=== PATIENT | female | born 1985 | race Caucasian/White ===

== ENCOUNTER 2019-11-26 10:17 | Emergency (ER) | payer BC ==
[~2019-11-26] VITALS: Ht 172.7 cm; Wt 90.5 kg
[2019-11-26 10:34] VITALS: TEMP 98.3
[2019-11-26 10:49] LABS: COLLECTION METHOD CLEAN CATCH
[2019-11-26 11:06] LABS: MUCOUS Present /lpf; PH 8 (5-8); URINE APPEARANCE Cloudy; URINE BACTERIA Rare /hpf; URINE BILIRUBIN Negative (NEGATIVE); URINE BLOOD Negative (NEGATIVE); URINE COLOR Yellow; URINE GLUCOSE Negative (NEGATIVE); URINE KETONE Trace (NEGATIVE); URINE LEUKOCYTE ESTERASE Negative (NEGATIVE); URINE NITRATE Negative (NEGATIVE); URINE PROTEIN(semi-quant) Negative (NEGATIVE); URINE RBC 0-2 /hpf; URINE UROBILINOGEN Negative (NEGATIVE)
[2019-11-26 11:13] LABS: BASO % 0.2 % (0.0-2.0); EOS # 0.1 (0.0-0.7); EOS % 1.7 % (0-4.0); GRAN # 5.7 (1.4-6.5); GRAN % 70.2 % (42.2-75.2); HEMOGLOBIN 11.5 g/dl (12.5-16.0); LYMPH # 1.6 (1.2-3.4); LYMPH % 19.9 % (20.0-51.0); MEAN CELL VOLUME 95 fl (80.0-100.0); MEAN CORPUSCULAR HEMOGLOBIN 33 pg (27.0-31.0); MEAN CORPUSCULAR HGB CONC 35 g/dl (33.0-37.0); MEAN PLATELET VOLUME 9.8 fl (7.4-10.4); MONO # 0.6 (0.1-0.6); MONO % 7.6 % (1.7-9.3); PLATELET COUNT 231 K/mm3 (130-400); REDCELL DISTRIBUTION WIDTH-CV 12.4 % (11.5-14.5)
[2019-11-26 11:29] LABS: ALBUMIN 3.7 gm/dL (3.5-5.0); BILIRUBIN,TOTAL 0.4 mg/dL (0.0-1.0); CALCIUM 8.8 mg/dL (8.4-10.2); CREATININE, serum 0.54 (0.52-1.25); POTASSIUM 3.6 mmol/L (3.4-5.0); TOTAL PROTEIN 6.7 gm/dL (6.4-8.2)
[2019-11-26 12:00] LABS: HEMATOCRIT 33.2 % (37.0-47.0)
[2019-11-26] MEDS ORDERED: PHENERGAN25 MG RC (12:48)
[2019-11-26] MEDS ORDERED: PHENERGAN 25 TA25 MG PO (12:48)
[2019-11-26 13:00] VITALS: BP 97/65; PULSE 58
== END 2019-11-26 13:30 | disposition home or self-care (01) ==
LOC: COL.ER 10:17
PROVIDERS: Emergency Medicine
DX: O21.0 Mild hyperemesis gravidarum (principal); Z3A.16 16 weeks gestation of pregnancy
CPT/HCPCS: J1200; J2405; J2550; J7030; J7042

== ENCOUNTER 2020-05-13 09:12 | Inpatient (IN) | payer BC ==
[2020-05-13] VITALS (31 sets, daily range): BP systolic 121–172; BP diastolic 67–99; PULSE 60–114; TEMP 97.4–98.3
[~2020-05-13] VITALS: Ht 167.6 cm; Wt 106.4 kg
--- NOTE | 2020-05-13 09:05 | NUR ---
0905-40.2 G1 to LR 5 via wheelchair. Reports contractions every 2-5 min that started at 0100. Denies LOF or VB reports good movement. Patient assisted to bathroom. Heavily breathing through contracitons. Changed to gown and placed on EFM. Reactive FHR. SVE 3-4/80/-2. Dr. Martinez updated. Orders to admit patient. Updated patient on plan of care. 0920-IV to right hand by MOHAN Hassan. Patient to chair. Consents reviewed and signed. Assessment complete. 1000-Off EFM and to bedside alternating between chair and birthing ball. 1045-Patient back on EFM. Reactive FHR. SVE 5/80/-2. 1112-OFF EFM to whirlpool tub. Tub water 98.6. Spouse with patient. 1157-Back on EFM, Reactive FHR. VSS, see flow record. 1208-SVE /-1, Akilah MURGUIA who is on unit. 1215-patient to Chair. 1325-Patient back to bed, SVE by /0. 1340-Patient requests epidural. BLAIRE Yo notified. 1400-patient sitting uright for epidural. 1415-Test dose administered by BLAIRE Yo. Patient tolerated well. Repositioned WL. 1450-Solano to DD, clear yellow urine. adriana care provided. SVE 100/0 1453-SROM, light mec noted. Adriana care provided. Updated .
[~2020-05-13 09:12] MED LIST: PHENERGAN 25 TA25 MG PO; PHENERGAN25 MG RC
[2020-05-13] MEDS ORDERED: PRENATAL (09:39)
[2020-05-13] MEDS ORDERED: FIBER GUMMIES2.5 GM PO (09:40)
[2020-05-13 10:09] LABS: BASO % 0.3 % (0.0-2.0); EOS # 0.1 (0.0-0.7); GRAN # 11.5 (1.4-6.5); GRAN % 81.4 % (42.2-75.2); HEMATOCRIT 39.1 % (37.0-47.0); HEMOGLOBIN 13.6 g/dl (12.5-16.0); LYMPH # 1.6 (1.2-3.4); MEAN CELL VOLUME 95 fl (80.0-100.0); MEAN CORPUSCULAR HEMOGLOBIN 33 pg (27.0-31.0); MEAN CORPUSCULAR HGB CONC 35 g/dl (33.0-37.0); MEAN PLATELET VOLUME 11.3 fl (7.4-10.4); MONO # 0.8 (0.1-0.6); MONO % 5.7 % (1.7-9.3); PLATELET COUNT 231 K/mm3 (130-400); RED BLOOD COUNT 4.12 M/mm3 (4.10-5.30)
--- NOTE | 2020-05-13 16:05 | NUR ---
1605-SVE /+1, Updated MD. Orders to start pushing. 1625-Patient begins pushing with contractions moves vertex well. 1645-WL pushing, difficulty maintaining continous tracig of FHR with position, adjusted EFM. Repositioned back semifowlers and continued to push. 1720-Requested MD for delivery 1724-Dr. Martinez to room,set up for delivery. 1726-Spontaneous delivery of head assisted by MD. Immediately followed by body. Viable female infat to mothers abdomen. Cord clamped x2 and cut by FOB. Care of assumed by Castro. Apgars 8/9/9. 1731-Spontaneous delivery of intact placenta by MD. Fundal massage firm. lochia WNL. EBL 200ml. Pitocin bolus per MD order and protocl. Bilateral labia and superficial perineal repair by MD. Adriana care provided. Ice to perineum. updated on safety and plan of care.
--- NOTE | 2020-05-13 20:30 | NUR ---
Pt up to the bathroom with standby assist and without complications. Pt was able to void. Adriana-care was done. Pt transferred to room 216 via wheelchair. Oriented to room, bed and call light within reach. Plan of care reviewed with pt.
[2020-05-14 01:15] VITALS: BP 138/77; PULSE 70; TEMP 98.4
[2020-05-14 05:00] VITALS: BP 129/72; PULSE 84; TEMP 98.3
[2020-05-14 06:50] VITALS: BP 144/86; PULSE 69; TEMP 97.5
[2020-05-14 16:20] VITALS: BP 124/74; PULSE 74; TEMP 98.3
[2020-05-14 20:45] VITALS: BP 122/69; PULSE 84; TEMP 98.7
[2020-05-15] MEDS ORDERED: MOTRIN 600600 MG/TAB PO (07:46)
[2020-05-15 07:51] VITALS: BP 116/78; PULSE 76; TEMP 98.1
--- NOTE | 2020-05-15 09:22 | NUR ---
Initial visit attempt; Family resting, [employer] left card of congratulations for the of their daughter and information regarding the availability of [facility] at [facility].
== END 2020-05-15 16:45 | disposition home or self-care (01) | DRG 807 ==
LOC: LDRO 09:12 → OB 09:30 → LDR 09:30 → OB 20:52
PROVIDERS: Obstetrics & Gynecology; ADMIT Obstetrics & Gynecology
PROC: 10E0XZZ Delivery of Products of Conception, External Approach (ICD-10-PCS; principal; 2020-05-13)
PROC: 0HQ9XZZ Repair Perineum Skin, External Approach (ICD-10-PCS; 2020-05-13)
PROC: 0UQMXZZ Repair Vulva, External Approach (ICD-10-PCS; 2020-05-13)
DX: O48.0 Post-term pregnancy (principal); Z37.0 Single live birth; O70.0 First degree perineal laceration during delivery; O77.0 Labor and delivery complicated by meconium in amniotic fluid; Z3A.40 40 weeks gestation of pregnancy
CPT/HCPCS: J0595; J2590; J7120